=== PATIENT | male | born 1935 ===

== ENCOUNTER 2022-08-15 07:22 | Day surgery (SDC) | payer OTHER ==
[2022-08-13 15:49] VITALS: BMI 22.6
[2022-08-15] MEDS: CYCLOPENTOLATE 2% OPHTH SOLN 2 ML BOTTLE ONE ×3 (08:05→08:15)
[2022-08-15] MEDS: PHENYLEPHRINE 2.5% OPTHALMIC DROP 2ML BOTTLE ONE ×3 (08:05→08:15)
[2022-08-15] MEDS: CIPROFLOXACIN 0.3% EYE DROPS 5 ML BOTTLE ONE ×3 (08:05→08:15)
[2022-08-15] MEDS: TROPICAMIDE 1% OPHTH SOLN 15 ML BOTTLE ONE ×3 (08:05→08:15)
[2022-08-15] MEDS ORDERED: LIDOCAINE 1% P/F 10 MG/ML VIAL ONE (08:30)
[2022-08-15] MEDS ORDERED: BSS (NA/CA/MG/K) BALANCED SALT SOLUTION OPHTH SOLN 15 ML BOTTLE ONE (08:30)
[2022-08-15] MEDS ORDERED: NEO/POLYMYX B SULF/DEXAMETH OPHTHALMIC 5ML BOTTLE ONE (08:30)
[2022-08-15] MEDS ORDERED: CARBACHOL 0.01% INTRA-OCULAR 1.5 ML VIAL ONE (08:30)
[2022-08-15] MEDS ORDERED: MIDAZOLAM HCL 2 MG/2 ML SINGLE DOSE VIAL ONE (09:39)
[2022-08-15 10:47] VITALS: RESP 18; TEMP 97.8
[2022-08-15 10:49] VITALS: BP 131/74; PULSE 82
== END 2022-08-15 10:45 | disposition home or self-care (01) ==
LOC: FASU 07:22
PROVIDERS: ATTEND Ophthalmology
PROC: 08RK3JZ Replacement of Left Lens with Synthetic Substitute, Percutaneous Approach (ICD-10-PCS; principal; 2022-08-15 09:44)
DX: H26.8 Other specified cataract (principal)
CPT/HCPCS: 66984; V2632